=== PATIENT | male | born 1990 | race Caucasian/White ===

== ENCOUNTER 2021-06-09 10:47 | Emergency (ER) | payer OTHER ==
[2021-06-09] MEDS ORDERED: ONDANSETRON 4 MG/2 ML VIAL IVP STA (11:39)
[2021-06-09] MEDS ORDERED: SODIUM CHLORIDE 0.9% 1,000 ML IV ONE (11:39)
[2021-06-09] MEDS ORDERED: ACETAMINOPHEN 325 MG TABLET PO STA (12:11)
[2021-06-09] MEDS ORDERED: SODIUM CHLORIDE 0.9% 1,000 ML IV STA (12:11)
--- NOTE | 2021-06-09 12:13 | ED Physician Documentation ---
History of Present Illness - Stated complaint Stated Complaint: FEVER, STOMACH PX - Chief complaint Chief Complaint: General - History obtained from History obtained from: Patient - History of Present Illness Timing: How many days ago (5) Pain level max: 3 Pain level now: 1 - Additonal information Additional information: Patient is a 30-year-old male, otherwise healthy presents to the emergency department with 5 days of intermittent nausea, vomiting, diarrhea. Intermittent fevers as well. He has not taken anything for this at home. Has generalized body aches. He states mild nausea currently. He did recently travel here from [place]. No recent antibiotics. No camping. Does not take any medications at home. He is COVID vaccinated. No cough. No congestion. Review of Systems Constitutional: reports: Fever Nose: denies: Rhinorrhea / runny nose, Congestion Respiratory: denies: Cough GI: reports: Nausea, Vomiting, Diarrhea. denies: Constipation, Hematemesis, Bloody / black stool Skin: denies: Rash Musculoskeletal: denies: Neck pain, Back pain Neurologic: denies: Headache PD PAST MEDICAL HISTORY - Past Medical History Past Medical History: No - Past Surgical History Past Surgical History: No - Present Medications Home Medications: Ambulatory Orders Medication Instructions Recorded Confirmed Promethazine [Phenergan] 25 mg PO Q6H PRN #10 tab 06/09/21 - Allergies Allergies/Adverse Reactions: Allergies Allergy/AdvReac Type Severity Reaction Status Date / Time No Known Drug Allergies Allergy Verified 06/09/21 10:50 - Living Situation Living Situation: reports: With family Living Arrangement: reports: At home - Social History Does the pt smoke?: No Smoking Status: Never smoker Does the pt drink ETOH?: No Does the pt have substance abuse?: No - Family History Family history: reports: Non contributory PD ED PE NORMAL - Vitals Vital signs reviewed: Yes - General General: Alert and oriented X 3, No acute distress - HEENT HEENT: PERRL, Moist mucous membranes - Neck Neck: Supple, no meningeal sign - Cardiac Cardiac: RRR, Strong equal pulses - Respiratory Respiratory: No respiratory distress, Clear bilaterally - Abdomen Abdomen: Soft, Non tender, Non distended - Derm Derm: Warm and dry - Extremities Extremities: No edema - Neuro Neuro: Alert and oriented X 3 - Psych Psych: Normal mood, Normal affect Results - Vitals Vitals: Vital Signs - 24 hr 06/09/21 06/09/21 06/09/21 10:50 14:24 14:34 Temperature 39.0 C H Heart Rate 99 88 Respiratory 16 16 Rate Blood Pressure 133/83 H 120/79 120/79 O2 Saturation 100 99 99 06/09/21 15:18 Temperature 37.7 C Heart Rate 80 Respiratory 18 Rate Blood Pressure 117/78 O2 Saturation 99 Oxygen O2 Source Room air - Labs Labs: Laboratory Tests 06/09/21 06/09/21 06/09/21 11:20 11:20 11:20 WBC 2.1 L RBC 4.88 Hgb 15.6 Hct 43.2 MCV 88.5 MCH 32.0 H MCHC 36.1 H RDW 12.1 Plt Count 110 L MPV 10.4 Neut # (Auto) Not Reportable Lymph # (Auto) Not Reportable Williamson # (Auto) Not Reportable Eos # (Auto) Not Reportable Baso # (Auto) Not Reportable Absolute Nucleated RBC Not Reportable Total Counted 100 Band Neuts % (Manual) 34 H Reactive Lymphs % (Man) 6 Abnorm Lymph % (Manual) 0 Nucleated RBC % Not Reportable Neutrophils # (Manual) 1.5 Lymphocytes # (Manual) 0.3 L Monocytes # (Manual) 0.3 Eosinophils # (Manual) 0.0 Basophils # (Manual) 0.0 Differential Comment MANUAL DIFFERENTIAL Sodium 128 L Potassium 3.2 L Chloride 92 L Carbon Dioxide 26 Anion Gap 10.0 BUN 9 Creatinine 1.0 Estimated GFR (MDRD) 88 L Glucose 123 H Calcium 8.4 L Total Bilirubin < 0.2 L AST 59 H ALT 17 Alkaline Phosphatase 46 Total Protein 7.1 Albumin 4.1 Globulin 3.0 Albumin/Globulin Ratio 1.4 Lipase 70 H Nasal Adenovirus (PCR) Nasal B. parapertussis DNA (PCR) Nasal Coronavir 229E PCR Nasal Coronavir HKU1 PCR Nasal Coronavir NL63 PCR Nasal Coronavir OC43 PCR Nasal Enterovir/Rhinovir PCR Nasal Influenza B PCR Nasal Influenza A PCR Nasal Parainfluen 1 PCR Nasal Parainfluen 2 PCR Nasal Parainfluen 3 PCR Nasal Parainfluen 4 PCR Nasal RSV (PCR) Nasal B.pertussis DNA PCR Nasal C.pneumoniae (PCR) Ole Human Metapneumo PCR Nasal M.pneumoniae (PCR) Nasal SARS-CoV-2 (PCR) Infectious Williamson Assay NEGATIVE 06/09/21 11:20 WBC RBC Hgb Hct MCV MCH MCHC RDW Plt Count MPV Neut # (Auto) Lymph # (Auto) Williamson # (Auto) Eos # (Auto) Baso # (Auto) Absolute Nucleated RBC Total Counted Band Neuts % (Manual) Reactive Lymphs % (Man) Abnorm Lymph % (Manual) Nucleated RBC % Neutrophils # (Manual) Lymphocytes # (Manual) Monocytes # (Manual) Eosinophils # (Manual) Basophils # (Manual) Differential Comment Sodium Potassium Chloride Carbon Dioxide Anion Gap BUN Creatinine Estimated GFR (MDRD) Glucose Calcium Total Bilirubin AST ALT Alkaline Phosphatase Total Protein Albumin Globulin Albumin/Globulin Ratio Lipase Nasal Adenovirus (PCR) NOT DETECTED Nasal B. parapertussis DNA (PCR) NOT DETECTED Nasal Coronavir 229E PCR NOT DETECTED Nasal Coronavir HKU1 PCR NOT DETECTED Nasal Coronavir NL63 PCR NOT DETECTED Nasal Coronavir OC43 PCR NOT DETECTED Nasal Enterovir/Rhinovir PCR NOT DETECTED Nasal Influenza B PCR NOT DETECTED Nasal Influenza A PCR NOT DETECTED Nasal Parainfluen 1 PCR NOT DETECTED Nasal Parainfluen 2 PCR NOT DETECTED Nasal Parainfluen 3 PCR NOT DETECTED Nasal Parainfluen 4 PCR NOT DETECTED Nasal RSV (PCR) NOT DETECTED Nasal B.pertussis DNA PCR NOT DETECTED Nasal C.pneumoniae (PCR) NOT DETECTED Ole Human Metapneumo PCR NOT DETECTED Nasal M.pneumoniae (PCR) NOT DETECTED Nasal SARS-CoV-2 (PCR) NOT DETECTED Infectious Williamson Assay PD MEDICAL DECISION MAKING - ED course Complexity details: reviewed results, re-evaluated patient, considered differential, d/w patient ED course: Unclear etiology of the patient's symptoms. He does feel better after IV fluids. He is leukopenic and thrombocytopenic, but not anemic or uremic. No renal issues. No abdominal tenderness on serial exam. No tick bites or exposures. No indication for abdominal CT at this time. We will continue supportive care and have him return here in 2 to 3 days for repeat lab work. He is visiting from [place] and does not have a primary care provider here. Patient is well-appearing, nontoxic. Patient counseled regarding signs and symptoms for which I believe and urgent re-evaluation would be necessary. Patient with good understanding of and agreement to plan and is comfortable going home at this time This document was made in part using voice recognition software. While efforts are made to proofread this document, sound alike and grammatical errors may occur. Departure - Departure Disposition: 01 Home, Self Care Clinical Impression: Viral syndrome, Thrombocytopenia Leukopenia Qualifiers: Leukopenia type: unspecified Qualified Code(s): D72.819 - Decreased white blood cell count, unspecified Condition: Good Instructions: ED Viral Syndrome Follow-Up: your,doctor in 3 days [Other] Prescriptions: Promethazine [Phenergan] 25 mg PO Q6H PRN #10 tab PRN Reason: Nausea / Vomiting Comments: Please return in approximately 3 days to have your blood counts rechecked. Your prescriptions were sent to [facility] in [place]. Continue to drink plenty of fluids at home. This likely represents a viral syndrome, but if your symptoms are worsening or failing to improve, return sooner for recheck. Discharge Date/Time: 06/09/21 15:17
[2021-06-09 12:20] LABS: BASOPHILS % (AUTO) 0.5 %; HCT - HEMATOCRIT 43.2 % (42.0-52.0); HGB - HEMOGLOBIN 15.6 g/dL (14.0-18.0); LYMPHOCYTES % (AUTO) 27.1 %; MEAN CORPUSCULAR HGB CONC 36.1 g/dL (32.0-36.0); MEAN CORPUSCULAR VOLUME 88.5 fL (80.0-94.0); MEAN PLATELET VOLUME 10.4 fL (7.4-11.4); MONOCYTES % (AUTO) 6.1 %; NEUTROPHILS % (AUTO) 65.8 %; PLT - PLATELET COUNT 110 10^3/uL (130-450); RED BLOOD COUNT 4.88 10^6/uL (4.70-6.10); RED CELL DISTRIBUTION WIDTH 12.1 % (12.0-15.0); WHITE BLOOD COUNT 2.1 x10^3/uL (4.8-10.8)
[2021-06-09 12:26] LABS: ABNORMAL LYMPHS % (MANUAL) 0 %
[2021-06-09 12:45] LABS: ALBUMIN 4.1 g/dL (3.2-5.5); ALBUMIN/GLOBULIN RATIO 1.4 (1.0-2.2); ALT ALANINE AMINOTRANSFERASE 17 IU/L (10-60); AST ASPARTATE AMINOTRANSFERASE 59 IU/L (10-42); BILIRUBIN,TOTAL < 0.2 mg/dL (0.2-1.0); BUN - BLOOD UREA NITROGEN 9 mg/dL (6-20); CALCIUM 8.4 mg/dL (8.5-10.3); CARBON DIOXIDE - CO2 26 mmol/L (21-32); CHLORIDE 92 mmol/L (101-111); GFR - MDRD 88 (>89); GLUCOSE 123 mg/dL (70-100); LIPASE 70 U/L (22-51); POTASSIUM 3.2 mmol/L (3.5-5.0); SODIUM 128 mmol/L (135-145); TOTAL PROTEIN 7.1 g/dL (6.7-8.2)
[2021-06-09 12:48] LABS: BAND NEUTROPHILS % (MANUAL) 34 %; BASOPHILS % (MANUAL) 2 %; DIFFERENTIAL COMMENT MANUAL DIFFERENTIAL; LYMPHOCYTES # (MANUAL) 0.3 10^3/uL (1.5-3.5); LYMPHOCYTES % (MANUAL) 8 %; MONOCYTES # (MANUAL) 0.3 10^3/uL (0.0-1.0); NEUTROPHILS # (MANUAL) 1.5 10^3/uL (1.5-6.6); REACTIVE LYMPHS % (MANUAL) 6 %
[2021-06-09 12:57] LABS: INFECTIOUS MONONUCLEOSIS NEGATIVE (Negative)
[2021-06-09 13:07] LABS: ALKALINE PHOSPHATASE 46 IU/L (42-121)
[2021-06-09 14:22] LABS: B. PARAPERTUSSIS- RESP PCR PAN NOT DETECTED; B. PERTUSSIS- RESP PCR PANEL NOT DETECTED; C. PNEUMONIAE- RESP PCR PANEL NOT DETECTED; CORONAVIRUS 229E-RESP PCR NOT DETECTED; CORONAVIRUS HKU1-RESP PCR NOT DETECTED; CORONAVIRUS NL63-RESP PCR NOT DETECTED; CORONAVIRUS OC43-RESP PCR NOT DETECTED; HUMAN METAPNEUMOVIRUS NOT DETECTED; INFLUENZA A- RESP PCR PANEL NOT DETECTED; INFLUENZA B - RESP PCR PANEL NOT DETECTED; M. PNEUMONIAE- RESP PCR PANEL NOT DETECTED; PARAINFLUENZA VIRUS 1 NOT DETECTED; PARAINFLUENZA VIRUS 2 NOT DETECTED; PARAINFLUENZA VIRUS 3 NOT DETECTED; PARAINFLUENZA VIRUS 4 NOT DETECTED; RHINOVIRUS/ENTEROVIRUS NOT DETECTED; RSV- RESP PCR PANEL NOT DETECTED; SARS-CoV-2 -RESP PCR PANEL NOT DETECTED
[2021-06-09 15:19] VITALS: BP 117/78
== END 2021-06-09 15:17 | disposition home or self-care (01) ==
LOC: ED 10:47
DX: B34.9 Viral infection, unspecified (principal); D69.6 Thrombocytopenia, unspecified; D72.819 Decreased white blood cell count, unspecified; Z20.822 Contact with and (suspected) exposure to COVID-19
CPT/HCPCS: 36415; 80053; 83690; 85025; 86308; 87633; 96361; 96374; 99283; 99284; A9270